=== PATIENT | female | born 1990 | race Hispanic/Latino ===

== ENCOUNTER 2020-08-12 08:16 | Outpatient (CLI) | payer OTHER | END 2020-08-12 08:17 | disposition home or self-care (01) | LOC: MADLABBHPM 08:16 | PROVIDERS: ATTEND Family Medicine | DX: O09.93 Supervision of high risk pregnancy, unspecified, third trimester (principal) | CPT/HCPCS: 36415; 82951; 82952 ==

== ENCOUNTER 2020-10-10 13:58 | Outpatient (CLI) | payer OTHER | END 2020-10-10 13:59 | disposition home or self-care (01) | LOC: MADLAB 13:58 | PROVIDERS: ATTEND Family Medicine | DX: O09.893 Supervision of other high risk pregnancies, third trimester (principal) | CPT/HCPCS: 87081 ==